=== PATIENT | male | born 1940 | race Caucasian/White ===

== ENCOUNTER → 2016-05-05 19:24 | Outpatient (CLI) | payer MEDICARE, OTHER ==
[2016-01-14 07:53] VITALS: BMI 28.1
[~2016-05-05 19:24] MED LIST: AMBIEN CR12.5 MG/BO PO; BACTRIM DS TABL1 TAB PO; DEMEROL50 MG PO; DILAUDID2 MG PO; ELIQUIS2.5 MG PO; FLOMAX0.4 MG PO; GABAPENTIN100 MG PO; GLUCOPHAGE1000 MG PO; HYDROCHLOROTH12.5 M1 PO; INVOKANA300 MG PO; JANUVIA100 MG PO; NADOLOL PO; NORVASC10 MG PO; PERCOCET 10/3251 TA1 PO; VALIUM10 MG PO; [UNRECOGNIZED DRUG - OTHER] PO
== END | disposition home or self-care (01) ==
LOC: D.LABREF 19:24
DX: M17.9 Osteoarthritis of knee, unspecified (principal); Z11.8 Encounter for screening for other infectious and parasitic diseases

== ENCOUNTER 2016-05-12 08:30 | Inpatient (IN) | payer MEDICARE, OTHER ==
[~2016-05-12] VITALS: Ht 172.7 cm; Wt 86.4 kg
[2016-05-12 08:23] LABS: BASOPHILS 0.1 % (0.0-2.0); EOSINOPHILS 2.6 % (0-7); IMMATURE GRANULOCYTES 0.3 % (0-5); LYMPHOCYTES 21.4 % (15-50); MCH 30.9 pg (26.0-34.0); MCHC 33.3 g/dL (31.0-37.0); MCV 92.7 fL (80.0-100.0); MEAN PLATELET VOLUME 10.4 fL (7.4-10.4); MONOCYTES 10.9 % (2-11); NEUTROPHILS 64.7 % (40-80); PLATELET COUNT 158 10x3/uL (130-400); RBC 4.53 10x6/uL (4.20-6.10); RDW 13.1 % (11.5-14.5); WBC 7.2 10x3/uL (4.8-10.8)
[2016-05-12 08:26] LABS: APPEARANCE CLEAR (CLEAR); BILIRUBIN NEGATIVE (NEGATIVE); COLOR YELLOW (YELLOW); GLUCOSE NEGATIVE (NEGATIVE); KETONE NEGATIVE (NEGATIVE); LEUKOCYTE ESTERASE NEGATIVE (NEGATIVE); NITRITE NEGATIVE (NEGATIVE); PROTEIN NEGATIVE (NEGATIVE); SPECIFIC GRAVITY 1.015 (1.005-1.020); UROBILINOGEN NORMAL (NORMAL)
[~2016-05-12 08:30] MED LIST changes: -BACTRIM DS TABL1 TAB PO; -ELIQUIS2.5 MG PO; -PERCOCET 10/3251 TA1 PO
[2016-05-12 08:35] LABS: ANION GAP 13.2 mmol/L (8-16); CALCIUM 9.3 mg/dL (8.5-10.1); CARBON DIOXIDE 30.1 mmol/L (21.0-32.0); CREATININE - SERUM 1.2 mg/dL (0.6-1.3); POTASSIUM - SERUM 4.3 mmol/L (3.5-5.1)
[2016-05-12 08:39] LABS: APTT 27.5 SECONDS (22.8-39.4); INR 0.98 (0.85-1.17); PROTIME 12.8 SECONDS (11.6-15.0)
[2016-05-16] VITALS (11 sets, daily range): BP systolic 116–142; BP diastolic 46–84; Ht 172.7 cm; Wt 86.4 kg
--- NOTE | 2016-05-16 13:38 | NUR ---
PT PUT INTO PACU HOLDING MODE WHILE WAITING FOR MED SURG STAFF TO BE ASSIGNED TO PT.
--- NOTE | 2016-05-16 13:50 | NUR ---
RECEIVED TO ROOM 2212 VIA BED FROM PACU. A/O X3. AT BEDSIDE. DRESSING TO LEFT KNEE IS DRY AND INTACT. DENIES PAIN. PEDAL PULSES PALPABLE. DENEIS NEEDS.
--- NOTE | 2016-05-16 14:45 | NUR ---
VSS LUNCH TRAY SERVED IN ROOM. ATE ALL OF TRAY. NO C/O PAIN AT THIS TIME. INSTRUCTED IN USE OF IS WITH RETURN DEMONSTRATION. DENIES NEEDS.
--- NOTE | 2016-05-16 16:20 | NUR ---
RESTING QUIETLY IN BED. AT BEDSIDE. DENIES NEEDS. VSS.
--- NOTE | 2016-05-16 17:00 | NUR ---
FSBS 214. GIVEN HUMALOG SUB Q PER SS. SUPPER SERVED IN ROOM. ATE ALL OF MEAL. DENIES NEEDS.
--- NOTE | 2016-05-16 19:15 | NUR ---
RECIEVED SHIFT REPORT. PT IS LYING IN BED. ALERT AND ORIENTED AND ABLE TO VERBALIZE NEEDS. IV IS PATENT AND SALINE LOC AT THIS TIME. PT IS AMBUTLATORY WITH ASSISTANCE. PT REFUSES SCD'S. PT DENIES ANY PAIN AT THIS TIME. ISOLATION PRECAUTIONS IN PLACE. NO NEEDS ARE VERBALIZED AT THIS TIME. WILL CONTINUE TO MONITOR. SIDE RAILS ARE UP X 2. BED IS IN LOWEST POSITION. LIBBY MAT ON FOR SAFETY. CALL LIGHT IS WITHIN REACH.
--- NOTE | 2016-05-16 19:30 | NUR ---
RECIEVED SHIFT REPORT. PT IS LYING IN BED. ALERT AND ORIENTED AND ABLE TO VERBALIZE NEEDS. IV IS PATENT AND FLUIDS ARE RUNNING PER ORDER. O2 @ 2 PER NASAL CANNULA. SCD'S ON. CPM ON. DRESSING TO LEFT KNEE C/D/I. PT STATES PAIN IS 6/10. NO NEEDS ARE VERBALIZED AT THIS TIME. WILL CONTINUE TO MONITOR. SIDE RAILS ARE UP X 2. BED IS IN LOWEST POSITION. BED ALARM IS ON FOR SAFETY. CALL LIGHT IS WITHIN REACH.
--- NOTE | 2016-05-16 19:34 | NUR ---
CPM ON AT 1830. AT BEDSIDE. NO CHANGES NOTED. DENIES NEEDS.
--- NOTE | 2016-05-16 20:46 | NUR ---
SHIFT ASSESSMENT COMPLETED. NIGHT MEDS GIVEN WITH NO PROBLEMS. PT RECIEVED 4 UNITS INSULIN PER SLIDING SCALE FOR SNVX=[id number]. PT C/O PAIN 10/08. ADMINISTERED PRESCRIBED PRN DEMEROL PER ORDER. DENIES FURTHER NEEDS. WILL MONITOR. SIDE RAILS X 2. BED LOW. BED ALARM ON. CALL LIGHT IN REACH.
[2016-05-17 00:21] VITALS: BP 135/69
[2016-05-17 05:00] VITALS: BP 142/71
[2016-05-17 06:46] LABS: BASOPHILS 0.1 % (0.0-2.0); HEMATOCRIT 36.6 % (42.0-54.0); HEMOGLOBIN 12.3 g/dL (13.5-17.5); IMMATURE GRANULOCYTES 0.3 % (0-5); LYMPHOCYTES 12.9 % (15-50); MCH 30.4 pg (26.0-34.0); MCHC 33.6 g/dL (31.0-37.0); MCV 90.6 fL (80.0-100.0); MONOCYTES 11.1 % (2-11); NEUTROPHILS 74.6 % (40-80); PLATELET COUNT 185 10x3/uL (130-400); RBC 4.04 10x6/uL (4.20-6.10); RDW 13.1 % (11.5-14.5); WBC 13.6 10x3/uL (4.8-10.8)
[2016-05-17 07:10] LABS: ANION GAP 12.7 mmol/L (8-16); CALCIUM 8.1 mg/dL (8.5-10.1); CREATININE - SERUM 1.2 mg/dL (0.6-1.3); POTASSIUM - SERUM 3.7 mmol/L (3.5-5.1)
[2016-05-17 07:53] VITALS: BP 105/83
--- NOTE | 2016-05-17 08:03 | NUR ---
AWAKE AND ALERT. ORIENTED X3. CPM OFF AT THIS TIME. LUNGS ARE CLEAR BILATERALLY, NO COUGH NOTED. REPORTS USED IS INSTRUCTED. SKIN IS INTACT IWTHOUT REDNESS EXCEPT INCISION TO LEFT KNEE WHICH HAS A DRY INTACT DRESSING IN PLACE. SCD'S ON. IV TO LEFT FOREARM IS PATENT WITHOUT REDNESS AT INSERTION SITE. AT BEDSIDE. DENIES NEEDS.
--- NOTE | 2016-05-17 09:30 | NUR ---
UP TO CHAIR AT BEDSIDE PER PT. REQUESTED AND GIVEN 50MG DEMEROL PO WITH 4MG ZOFRAN PO FOR PAIN LEVEL 9. WILL MONITOR.
--- NOTE | 2016-05-17 10:30 | NUR ---
REPORTS PAIN IMPROVED WITH DEMEROL. DENIES NEEDS. REMAINS UP IN CHAIR.
--- NOTE | 2016-05-17 10:42 | NUR ---
* Is the patient Alert and Oriented? Yes 0 * How many steps to enter\exit or inside your home? 1 0 * PCP Dr. Jesus Manuel Crocker 0 * Pharmacy [facility] 0 * Preadmission Environment Home with Family 0 * ADLs Independent 0 * Equipment Crutch Rolling Walker Shower Chair 0 * List name and contact numbers for known caregivers / representatives who currently or will assist patient after discharge: Spouse - Debo [phone] 0 * Additional services required to return to the preadmission environment? Yes 0 * Can the patient safely return to the preadmission environment? Yes 0 * Has this patient been hospitalized within the prior 30 days at any hospital? No 05/17/2016 10:42 DCP: Discharge Planning Patient Name: FELIX ANDERSON Admission Status: Elective Accout number: [id number] Admission Date: 05-16-2016 : 1942 Admission Diagnosis: Attending: NAVARRO Current LOS: 1 Anticipated DC Date: 05-18-2016 Planned Disposition: Outpatient PT\OT Primary Insurance: MEDICARE A & B Discharge Planning Comments: CM met with patient to assess dc plans/needs. Patient states he lives at home with his , Debo. He reports he was independent with all ADL's & IADL's prior to admission. He has crutches, walker, & shower chair. At nc, he will return home with his . He has chosen to go to [facility] outpatient [facility] therapy - Appt. scheduled 05/20 @ 1400. OP PT Rx faxed. CPM has been ordered by MD office through [facility] prior to admission & will be delivered to the home after discharge. CM will follow.
[2016-05-17 12:18] VITALS: BP 129/76
[2016-05-17 16:18] VITALS: BP 122/68
--- NOTE | 2016-05-17 19:40 | NUR ---
RECIEVED SHIFT REPORT. PT IS LYING IN BED. ALERT AND ORIENTED AND ABLE TO VERBALIZE NEEDS. IV IS PATENT AND SALINE LOC AT THIS TIME. SCD'S ON. CPM ON. DRESSING TO LEFT KNEE C/D/I. PT STATES PAIN IS 9/10. NO NEEDS ARE VERBALIZED AT THIS TIME. WILL CONTINUE TO MONITOR. SIDE RAILS ARE UP X 2. BED IS IN LOWEST POSITION. BED ALARM ON FOR SAFETY. CALL LIGHT IS WITHIN REACH.
--- NOTE | 2016-05-17 21:06 | NUR ---
SHIFT ASSESSMENT COMPLETED. NIGHT MEDS GIVEN WITH NO PROBLEMS. PT RECIEVED 8 UNITS INSULIN PER SLIDING SCALE FOR YRYN=[id number]. PT C/O PAIN 01/08. ADMINISTERED PRESCRIBED PRN DEMEROL PER ORDER. DENIES FURTHER NEEDS. WILL MONITOR. SIDE RAILS X 2. BED LOW. BED ALARM ON. CALL LIGHT IN REACH.
[2016-05-17 22:00] VITALS: BP 130/69
[2016-05-18 06:15] LABS: BASOPHILS 0.1 % (0.0-2.0); EOSINOPHILS 1.7 % (0-7); HEMATOCRIT 31.8 % (42.0-54.0); IMMATURE GRANULOCYTES 0.3 % (0-5); MCH 30.9 pg (26.0-34.0); MCHC 34.6 g/dL (31.0-37.0); MCV 89.3 fL (80.0-100.0); MEAN PLATELET VOLUME 10.3 fL (7.4-10.4); MONOCYTES 10.8 % (2-11); NEUTROPHILS 76.1 % (40-80); RBC 3.56 10x6/uL (4.20-6.10); RDW 12.9 % (11.5-14.5); WBC 11.8 10x3/uL (4.8-10.8)
[2016-05-18 06:18] LABS: PLATELET COUNT 134 10x3/uL (130-400)
[2016-05-18 06:49] LABS: ANION GAP 11.5 mmol/L (8-16); CALCIUM 7.2 mg/dL (8.5-10.1); CREATININE - SERUM 1.1 mg/dL (0.6-1.3); POTASSIUM - SERUM 3.5 mmol/L (3.5-5.1)
[2016-05-18 08:13] VITALS: BP 134/73
--- NOTE | 2016-05-18 08:28 | NUR ---
PT SEEN AND ASSESSED. NO COMPLAINTS OFPAIN AT PRESENT. LEFT LEG IN CPM MACHINE AND TOES ARE PINK AND WARM. ERIC WRAP NOTED FROM MID THIGH TO CALF. BED ALARM FOR SAFETY. CALL LIGHT IN REACH
[2016-05-18 11:56] VITALS: BP 151/80
[2016-05-18 15:52] VITALS: BP 141/72
--- NOTE | 2016-05-18 20:00 | NUR ---
ASSESSMENT PER FLOWSHEET. LEFT KNEE INCISION C/D/I. LEG IN CPM MACHINE. IV PATENT LEFT FOREARM SALINE LOCK. SITE CLEAR. AT BEDSIDE.SCD'S ON. BED ALARM BED ON SR UP X2 CALL LIGHT WITHIN REACH.
--- NOTE | 2016-05-18 21:36 | NUR ---
MEDS GIVEN PER JUN. C/O LEFT KNEE PAIN RATES PAIN LEVEL #6 DEMEROL 50MG PO GIVEN FOR PAIN CONTROL.
--- NOTE | 2016-05-18 22:00 | NUR ---
VOIDS IN URINAL.
[2016-05-18 22:07] VITALS: BP 136/78
--- NOTE | 2016-05-19 | NUR ---
VOIDS IN URINAL. CMP OFF AT PRESENT WAS REMOVED AT 2100.SCD'S ON.
--- NOTE | 2016-05-19 00:30 | NUR ---
C/O INCISIONAL PAIN RATES PAIN LEVEL #6. DEMEROL 50MG PO GIVEN FOR PAIN CONTROL.
[2016-05-19 01:00] VITALS: BP 139/75
--- NOTE | 2016-05-19 01:48 | NUR ---
EYES CLOSED RESPIRATIONS WITH EASE AND UNLABORED.
--- NOTE | 2016-05-19 03:35 | NUR ---
TRANSFERED TO [facility] WITH USE OF WALKER AND 2 PEOPLE. CALL LIGHT WITHIN REACH.
--- NOTE | 2016-05-19 03:45 | NUR ---
FLATUS EXPELLED. TRANSFERED BACK TO BED WITH USE OF WALKER. BED ALARM ON SR UP X2 CALL LIGHT WITHIN REACH.
--- NOTE | 2016-05-19 03:55 | NUR ---
C/O PAIN INCISIONAL SITE. DEMEROL 50MG PO GIVEN FOR PAIN CONTROL.
[2016-05-19 05:45] LABS: BASOPHILS 0.1 % (0.0-2.0); EOSINOPHILS 1.7 % (0-7); HEMATOCRIT 30.8 % (42.0-54.0); HEMOGLOBIN 10.5 g/dL (13.5-17.5); IMMATURE GRANULOCYTES 0.3 % (0-5); LYMPHOCYTES 12.9 % (15-50); MCH 30.4 pg (26.0-34.0); MCHC 34.1 g/dL (31.0-37.0); MCV 89.3 fL (80.0-100.0); MEAN PLATELET VOLUME 10.8 fL (7.4-10.4); MONOCYTES 12.2 % (2-11); NEUTROPHILS 72.8 % (40-80); PLATELET COUNT 148 10x3/uL (130-400); RBC 3.45 10x6/uL (4.20-6.10); RDW 12.9 % (11.5-14.5)
--- NOTE | 2016-05-19 05:45 | NUR ---
CPM PLACED TO LEFT LEG. SR UP X2 CALL LIGHT WITHIN REACH.
[2016-05-19 06:09] LABS: ANION GAP 13.5 mmol/L (8-16); CALCIUM 7.3 mg/dL (8.5-10.1); CREATININE - SERUM 1.2 mg/dL (0.6-1.3); POTASSIUM - SERUM 3.5 mmol/L (3.5-5.1)
--- NOTE | 2016-05-19 06:13 | NUR ---
UHQO=091 HUMALOG INSULIN 12 UNITS GIVEN SUBC PER S/S TO LEFT ARM
--- NOTE | 2016-05-19 07:30 | NUR ---
REPORT RECEIVED FROM CASINO CASHIER MANAGER NURSE. CALL LIGHT IN REACH.
[2016-05-19 08:19] VITALS: BP 128/76
--- NOTE | 2016-05-19 09:03 | NUR ---
ASSESSMENT COMPLETED. AM MEDS ADMINISTERED. PAIN MEDS PO. CALL LIGHT IN [facility].
[2016-05-19 10:00] LABS: HEMOGLOBIN A1C 8.6 % (4.8-6.0)
--- NOTE | 2016-05-19 11:25 | NUR ---
PATIENT SITTING IN FLOOR AT THIS TIME. STATED HE SLID OFF OF HIS CHAIR BECAUSE HE SCOOTED UP TO MUCH. NO INJURY AT THIS TIME. ASSISTED BACK UP IN CHAIR X 2 ASSIST. DRESSING CLEAN AND DRY TO RIGHT KNEE. PATIENT STATED NO PAIN. VS TO BE TAKEN BY OCCUPATIONAL MEDICINE OFFICER. CALL LIGHT WITHIN REACH.
[2016-05-19 11:53] VITALS: BP 160/82
--- NOTE | 2016-05-19 13:44 | NUR ---
DEMEROL 50 MG PO PER C/O REQUEST OF PAIN OF 10 TO LEFT KNEE. CALL LIGHT IN REACH.
--- NOTE | 2016-05-19 15:20 | NUR ---
DENIES NEEDS AT THIS TIME. CALL LIGHT IN REACH.
--- NOTE | 2016-05-19 15:59 | NUR ---
STATES THAT PATIENT IS REQUESTING [employer] ONLY FOR DINNER. WILL PUT ORDER IN COMPUTER.
[2016-05-19 17:34] VITALS: BP 136/71
--- NOTE | 2016-05-19 17:40 | NUR ---
FSBS 192. REFUSES INSULIN AT THIS TIME. CALL LIGHT IN REACH.
--- NOTE | 2016-05-19 18:23 | NUR ---
METFORMIN AND DEMEROL PO. FRESH ICP PACK APPLIED TO LEFT KNEE. CPM PLACED ON PATIENT. SCDs TO BLE. BED ALARM ON. NO OTHER CHANGES IN INITIAL ASSESSMENT. CALL LIGHT IN REACH. WILL CONTINUE WITH PLAN OF CARE.
--- NOTE | 2016-05-19 20:00 | NUR ---
ASSESSMENT PER FLOWSHEET. LEFT LEG IN CPM MACHINE ACEWRAP C/D/I. IV PATENT LEFT AC SALINE LOCKED. SITE CLEAR. SR UP X2 CALL LIGHT WITHIN REACH BED ALARM BED ON.SCD'S ON.
[2016-05-19 21:00] VITALS: BP 128/70
--- NOTE | 2016-05-19 21:30 | NUR ---
CPM REMOVED REPOSITIONED IN BED SR UP X2 CALL LIGHT WITHIN REACH MEDS GIVEN PER MAR. GURL=[id number] HUMALOG INSULIN 16 UNITS GIVEN SUBC PER S/S. TO LEFT ARM.
--- NOTE | 2016-05-20 | NUR ---
EYES CLOSED RESPIRATIONS WITH EASE AND UNLABORED.
[2016-05-20 01:00] VITALS: BP 130/68
--- NOTE | 2016-05-20 02:00 | NUR ---
RESTING QUIETLY BODY IN GOOD ALIGNMENT.
--- NOTE | 2016-05-20 04:36 | NUR ---
EYES CLOSED RESPIRATIONS WITH EASE AND UNLABORED.
[2016-05-20 05:00] VITALS: BP 133/70
[2016-05-20 05:41] LABS: BASOPHILS 0.1 % (0.0-2.0); EOSINOPHILS 2.7 % (0-7); HEMATOCRIT 28.2 % (42.0-54.0); HEMOGLOBIN 9.5 g/dL (13.5-17.5); IMMATURE GRANULOCYTES 0.4 % (0-5); LYMPHOCYTES 14.9 % (15-50); MCH 30.4 pg (26.0-34.0); MCHC 33.7 g/dL (31.0-37.0); MCV 90.1 fL (80.0-100.0); MEAN PLATELET VOLUME 10.3 fL (7.4-10.4); MONOCYTES 12.3 % (2-11); NEUTROPHILS 69.6 % (40-80); PLATELET COUNT 165 10x3/uL (130-400); RBC 3.13 10x6/uL (4.20-6.10)
[2016-05-20 05:55] LABS: WBC 7.3 10x3/uL (4.8-10.8)
[2016-05-20 06:03] LABS: CALC OSMOLALITY 272 mosm/kg (275-300); CARBON DIOXIDE 30.1 mmol/L (21.0-32.0); CHLORIDE - SERUM 95 mmol/L (98-107); GLUCOSE 193 mg/dL (74-106); POTASSIUM - SERUM 3.1 mmol/L (3.5-5.1); SODIUM 134 mmol/L (136-145); UREA NITROGEN 12 mg/dL (7-18); eGFR NON AFRICAN AMERICAN 78 mL/min (90-120)
--- NOTE | 2016-05-20 07:00 | NUR ---
REPORT RECEIVED FROM PC MAINTENANCE TECHNICIAN NURSE. CALL LIGHT IN REACH.
--- NOTE | 2016-05-20 08:12 | NUR ---
ASSESSMENT COMPLETED. DEMEROL AND AM MEDS ADMINISTERED. SCDs TO BLE. BED ALARM ON. WILL CONTINUE WITH PLAN OF CARE.
[2016-05-20 08:32] VITALS: BP 143/77
[2016-05-20] MEDS ORDERED: ELIQUIS2.5 MG PO (09:31)
[2016-05-20] MEDS ORDERED: PERCOCET 10/3251 TA1 PO (09:32)
--- NOTE | 2016-05-20 10:42 | NUR ---
05/20/2016 10:37 DCP: Discharge Planning Patient slow to progress with physical therapy - will benefit from outpatient therapy prior to outpatient. Patient & spouse agreeable. THEODORE signed with [facility]. Referral faxed and called to [facility]. Cancelled appt. with [facility]. DC this afternoon.
--- NOTE | 2016-05-20 10:54 | NUR ---
DR. CANDELARIO AND JANE IN ROOM TO LOOK AT PATIENT'S LEG.
[2016-05-20 11:50] VITALS: BP 140/75
--- NOTE | 2016-05-20 11:51 | NUR ---
WATCHING TV QUIETLY AT PRESENT RESP EVEN AND UNLABORED N/C VOICED.
--- NOTE | 2016-05-20 13:05 | NUR ---
PATIENT GOT OUT OF CHAIR ON HIS OWN AND WALKED TO THE BR AND BACK TO HIS BED. EXPLAINED TO PATIENT HOW DANGEROUS IT IS. BED ALARM PLACED ON PATIENT.
--- NOTE | 2016-05-20 15:50 | NUR ---
I HAVE SPOKEN WITH ULTRASOUND TWICE ABOUT VENOUS DOPPLER. FABRIZIO STATES IT WILL GET DONE AFTER OUTPATIENT ORDERS ARE COMPLETED.
[2016-05-20 16:17] VITALS: BP 135/79
--- NOTE | 2016-05-20 16:25 | NUR ---
US HERE TO DO VENOUS DOPPLER.
--- NOTE | 2016-05-20 17:43 | NUR ---
DRSG TO KNEE CHANGED. DEMEROL AND GLUCOPHAGE PO. FSBS 207. SO 12 UNITS HUMALOG SUBQ TO RIGHT ARM.
[2016-05-20] MEDS ORDERED: BACTRIM DS TABL1 TAB PO (18:30)
--- NOTE | 2016-05-20 19:27 | NUR ---
DC INSTRUCTIONS EXPLAINED TO PATIENT AND . BOTH VERBALIZED UNDERSTAnDING. RXs DILAUDID AND ELIQUIS GIVEN TO PATIENT.
--- NOTE | 2016-05-30 18:23 | OP ---
PATIENT NAME: FELIX ANDERSON MEDICAL RECORD: [id number] :42 LOCATION:D.[facility] ADMISSION DATE:05/16/16 SURGEON: JUAN GUILLAUME MD DATE OF OPERATION: 05/16/2016 PREOPERATIVE DIAGNOSIS: Severe degenerative arthritis of the left knee. POSTOPERATIVE DIAGNOSIS: Severe degenerative arthritis of the left knee. PROCEDURE: Left total knee arthroplasty. SURGEON: Juan Guillaume MD ANESTHESIA: General. INTRAOPERATIVE COMPLICATIONS: None. SUMMARY OF PATHOLOGIC FINDINGS: The patient has extensive osteoarthritis of the medial and patellofemoral joint. IMPLANTS USED: GPal triathlon total knee arthroplasty system, size 6 distal femur, 11 polyethylene insert, size 6 tibial baseplate with a 33-mm polyethylene resurfacing component. ESTIMATED BLOOD LOSS: 50 cc. OPERATIVE SUMMARY IN DETAIL: After obtaining the appropriate preoperative orthopedic surgery consent, as well as anesthetic consultation, evaluation and clearance, the patient was brought to the operating room and placed on the operating table in supine position. After adequate general laryngeal mask airway was administered, tourniquet was placed about the proximal aspect of left lower extremity. Left lower extremity was then prepped and draped in routine sterile fashion. Leg was elevated, exsanguinated and tourniquet was inflated to 350 mmHg. Routine midline incision was taken down for paramedian arthrotomy was everted, distal femur was exposed. Distal intramedullary guide hole was created followed by cutting the distal femur. Guide hole was also created in the proximal tibia for proximal tibial cut. Having completed this, measurements were taken. Distal femoral chamfer cuts were taken. Trials were put into place corresponding to the above final trials. Final distal femoral and proximal tibial preparations were followed by excision of the arthritic articular surface of the patella. Final patellar preparations for resurfacing were made. The knee cavity was irrigated in pulsatile lavage fashion. Bony ends were dried. Components were cemented into place. All excess cement was removed, the cement was allowed to harden. The knee was taken through a range of motion and found to be stable in all planes. Paramedian arthrotomy was closed with #2 Ethibond followed by #1 Vicryl, 2-0 Vicryl and skin alissa. Sterile dressings were applied. The patient was awakened, taken to recovery room in stable condition. All final needle and sponge counts were correct. TRANSINT:[id number] Voice Confirmation ID: [id number] DOCUMENT ID: [id number] OPERATIVE REPORT [id number] FELIX ANDERSON MD, JUAN VENTURA at 1823 CC: [id number] DICTATION DATE: 05/16/16 1302 COMBAT CONTROL MANAGER: 05/16/16 1408 DIS IN 05/20/16 [place] [id number] [place] [id number]
== END 2016-05-20 19:27 | disposition home health service (06) | DRG 470 ==
LOC: D.SDCHOLD 08:30 → D.MS 05-16 05:21 → D.SDCHOLD 05-16 08:30 → D.MS 05-16 13:07 → D.SDCHOLD 05-16 13:15 → D.MS 05-20 19:27
PROVIDERS: Family Medicine; ADMIT Orthopaedic Surgery
PROC: 0SRD0JZ Replacement of Left Knee Joint with Synthetic Substitute, Open Approach (ICD-10-PCS; principal; 2016-05-16 13:15)
DX: M17.12 Unilateral primary osteoarthritis, left knee (principal); E11.9 Type 2 diabetes mellitus without complications; I10 Essential (primary) hypertension

== ENCOUNTER → 2019-05-15 11:06 | Outpatient (CLI) | payer MEDICARE, OTHER ==
[2016-05-16 13:56] VITALS: BMI 28.9
[~2019-05-15 11:06] MED LIST changes: +BACTRIM DS TABL1 TAB PO; +ELIQUIS2.5 MG PO; +PERCOCET 10/3251 TA1 PO
== END | disposition home or self-care (01) ==
LOC: D.LAB 10:09
PROVIDERS: ATTEND Urology
DX: N40.0 Benign prostatic hyperplasia without lower urinary tract symptoms (principal)

== ENCOUNTER 2019-05-28 06:05 | Day surgery (SDC) | payer MEDICARE, OTHER ==
[2019-05-27 09:09] LABS: HEMATOCRIT 39.8 % (42.0-54.0); HEMOGLOBIN 12.9 g/dL (13.5-17.5); MCH 28.4 pg (26.0-34.0); MCHC 32.4 g/dL (31.0-37.0); MCV 87.5 fL (80.0-100.0); RBC 4.55 10x6/uL (4.20-6.10); RDW 16.3 % (11.5-14.5); WBC 5.8 10x3/uL (4.8-10.8)
[2019-05-27 09:17] LABS: CALCIUM 8.7 mg/dL (8.5-10.1); CARBON DIOXIDE 30.2 mmol/L (21.0-32.0); CREATININE - SERUM 1.3 mg/dL (0.6-1.3); POTASSIUM - SERUM 4.2 mmol/L (3.5-5.1)
[~2019-05-28] VITALS: Ht 172.7 cm; Wt 88.5 kg
[2019-05-28] MEDS ORDERED: BASAGLAR K100 UNIT/1 SC (06:28)
[2019-05-28 06:35] VITALS: BP 136/77; Ht 172.7 cm; Wt 88.5 kg
--- NOTE | 2019-05-28 10:29 | NUR ---
0950 IV DC'ED WITH CATH INTACT TO RIGHT HAND. RIGHT HAND ELEVATED ABOVE HEART LEVEL WITH STEADY PRESSURE APPLIED FOR 2 MINUTES. NO BLEEDING NOTED @ SITE. COTTON BALL TO SITE. HELD IN PLACE WITH BANDAID. PT DRESSING WITH 'S ASSISTANCE. Binh VIRGEN R.N. 1012 DRESSED. AWAKE & ALERT. GIVEN DISCHARGE INFORMATION INCLUDING: MED REC, RTC APPT., [facility] D/C INSTRUCTIONS & POST CYSTOSCOPY & POST RECTAL BIOPSY D/C INSTRUCTIONS. PT & VOICED UNDERSTANDING. TO PRIVATE CAR PER WHEELCAHIR BY STAFF. HOME WITH , ALLEN ANDERSON. Binh VIRGEN R.N.
--- NOTE | 2019-05-28 12:18 | OP ---
PATIENT NAME: FELIX ANDERSON MEDICAL RECORD: [id number] :42 LOCATION:D.[facility] ADMISSION DATE: SURGEON: JACE MONTES MD DATE OF OPERATION: 05/28/2019 SURGEON: Jace Montes MD ANESTHESIA: TIVA by Jimmy Braswell CRNA. DIAGNOSES: Bladder outlet obstruction, bladder mass, elevated PSA 4.54. PROCEDURES: 1. Cystoscopy, bladder tumor biopsy. 2. Transrectal ultrasound and prostate biopsy. FINDINGS: On cystoscopy, obstructive lateral lobes of the vascular prostatic urethra. There is a small nodule in the bladder, close to the left ureteral orifice. This was removed with the biopsy forceps. Transrectal ultrasound showed a 45.5 gram prostate with a hypoechoic area at the right base. There is no nodule palpable on digital rectal examination. SPECIMENS: 1. Bladder mass. 2. Prostate biopsy cores. BLOOD LOSS: Minimal. CLINICAL HISTORY: This is a 78-year-old male, who saw an advertisement on television regarding UroLift and he referred himself to get this procedure for BPH. He has had trouble voiding for the past 8 years. He is currently on Flomax and it is affecting him in terms of symptoms. He did not have a PSA test done in many years. I did repeat PSA on him and it was 4.54. His IPSS score is 20. His quality of life score is 5. He comes now to have a prostate biopsy and cystoscopy to evaluate the prostatic urethra. HE IS ALLERGIC TO CODEINE, HYDROCODONE, MORPHINE, Celebrex. He was given Levaquin IV court operations clerk to the OR. DESCRIPTION OF PROCEDURE: The patient was given IV sedation. He was placed in the lithotomy position and prepped and draped. A 17-Macanese cystoscope with 30-degree lens was used for visualization. The prostatic urethra is long and obstructive. It is quite vascular. The bladder neck is a bit elevated. Going into the bladder immediately in front of the left ureteral orifice with a small nodule or bump. It is not papillary in any way. I switched to the 21-Macanese cystoscope and using cold cup biopsy forceps to remove this nodule or bump entirely. We then introduced the Bugbee electrode and the base of the tumor mass where it had been excised from the bladder was cauterized to stop any venous bleeding. No other tumor masses were seen in the bladder. The bladder was then emptied through the cystoscope sheath and then the scope was removed. The transrectal ultrasound probe was then introduced. Prostate size measurements were obtained at 45.5 grams. There is a hypoechoic area in the right base. Sextant biopsies were obtained with at least 3 cores from each sextant. I made sure to include sampling from the hypoechoic area in the right base. Once all the specimens were obtained, the procedure was terminated. I will see the patient in followup next week to review the pathology results with him. OPERATIVE REPORT [id number] FELIX ANDERSON MOHIT TRANSINT:[id number] Voice Confirmation ID: [id number] DOCUMENT ID: [id number] JACE MONTES MD at 1218 CC: [id number] DICTATION DATE: 05/28/19841 INFECTIOUS DISEASE TECHNICIAN: 05/28/19 1005 [facility] 05/28/19 [place] [id number] [place] [address]
== END 2019-05-28 10:12 | disposition home or self-care (01) ==
LOC: D.OPS 06:05 → D.PAN 08:00 → D.OPS 10:12 → D.PAN 12:00 → D.OPS 12:00
PROVIDERS: Anesthesiology; ATTEND Urology
DX: N32.0 Bladder-neck obstruction (principal); N32.9 Bladder disorder, unspecified; R97.20 Elevated prostate specific antigen [PSA]; N40.1 Benign prostatic hyperplasia with lower urinary tract symptoms; E11.9 Type 2 diabetes mellitus without complications; Z79.84 Long term (current) use of oral hypoglycemic drugs

== ENCOUNTER → 2019-10-07 12:02 | Outpatient (CLI) | payer MEDICARE, OTHER ==
[2019-05-28 06:35] VITALS: BMI 29.7
[~2019-10-07 12:02] MED LIST changes: +BASAGLAR K100 UNIT/1 SC; +LOZOL1.25 MG PO; +NEXIUM20 MG PO; +PROBENECID500 MG; +iron PO
== END | disposition home or self-care (01) ==
LOC: D.LABREF 12:02
PROVIDERS: ATTEND Neurological Surgery
DX: Z11.59 Encounter for screening for other viral diseases (principal)

== ENCOUNTER 2019-10-08 06:30 | Day surgery (SDC) | payer MEDICARE, OTHER ==
[2019-10-07 12:40] LABS: HEMATOCRIT 42.9 % (42.0-54.0); HEMOGLOBIN 13.9 g/dL (13.5-17.5); MCH 30.5 pg (26.0-34.0); MCHC 32.4 g/dL (31.0-37.0); MCV 94.1 fL (80.0-100.0); MEAN PLATELET VOLUME 9.8 fL (7.4-10.4); RBC 4.56 10x6/uL (4.20-6.10); RDW 13.5 % (11.5-14.5); WBC 7.4 10x3/uL (4.8-10.8)
[2019-10-07 12:57] LABS: CALCIUM 8.9 mg/dL (8.5-10.1); CARBON DIOXIDE 30.3 mmol/L (21.0-32.0); CREATININE - SERUM 1.5 mg/dL (0.6-1.3); POTASSIUM - SERUM 4.3 mmol/L (3.5-5.1)
[~2019-10-08] VITALS: Ht 172.7 cm; Wt 95.3 kg
[2019-10-08 07:05] VITALS: BP 135/75; Ht 172.7 cm; Wt 95.3 kg
--- NOTE | 2019-10-08 10:02 | NUR ---
0940 PLACED ON BEDPAN 0950 HAD BM. SPRITE SERVED
--- NOTE | 2019-10-09 06:53 | OP ---
PATIENT NAME: FELIX ANDERSON MEDICAL RECORD: [id number] :42 LOCATION:D.OPS ADMISSION DATE: SURGEON: MAXIMINO MONTES MD DATE OF OPERATION: 10/08/2019 SURGEON: Maximino Montes MD ANESTHESIA: TIVA by Sheree Colbert CRNA. DIAGNOSES: Obstructive benign prostatic hyperplasia. PSA is 4.54. Transrectal ultrasound show 45.5 gram prostate. PROCEDURE: UroLift times 7 units fired, 6 held. FINDINGS: Bilateral lateral lobe obstruction with a long prostatic urethra. ESTIMATED BLOOD LOSS: Minimal. CLINICAL HISTORY: This is a 78-year-old male with obstructive BPH symptoms. He was found to have an elevated PSA of 4.54 and he had a transrectal ultrasound and prostate biopsy back in June of 2019. Pathology on the biopsy was benign. He comes now to have the UroLift procedure done. He was given ampicillin and sulbactam 3 grams IV demolition specialist to the OR. DESCRIPTION OF PROCEDURE: The patient was given IV sedation. He was then placed into lithotomy position and prepped and draped. The UroLift scope was introduced. Cystoscopy was performed using the UroLift scope. Findings are as outlined above. No bladder tumors are seen. At the anterolateral sulcus, 1.5 cm distal to the bladder neck, we placed 1 UroLift unit on each side. We then went to the level of the verumontanum and attempted to place 1 unit on each side of the anterolateral sulcus. Here on the left side, 1 unit fired, but the needle did not ever retract and it had to be withdrawn through the sheath. This caused some bleeding from the prostate. We fired another unit in this area and this other unit work properly. Looking in with the obturator, there was still obstruction in the mid prostatic urethra. In the mid prostatic urethra, at the mid height level in the anterior and posterior direction, 1 unit was placed on each side. This gave a total of 6 units that have been implanted. He now had a nice wide open channel. Because of the bleeding from the prostate, the bladder was irrigated through the sheath with an Ellik evacuator. No large clots were seen. I decided to be safe and place a Jay catheter to allow the bleeding to resolve. The patient will go home with a Jay catheter and I will see him back in 2-3 days to remove it for a voiding trial. TRANSINT:[id number] Voice Confirmation ID: [id number] DOCUMENT ID: [id number] MAXIMINO MONTES MD at 0653 CC: [id number] DICTATION DATE: 10/08/19 0938 MEDICARE CONTACT SPECIALIST: 10/08/19 1554 [facility] 10/08/19 [place] [id number]
== END 2019-10-08 11:00 | disposition home or self-care (01) ==
LOC: D.OPS 06:30 → D.PAN 08:00 → D.OPS 08:00 → D.PAN 08:15 → D.OPS 08:15
PROVIDERS: Anesthesiology; ATTEND Urology
DX: N40.1 Benign prostatic hyperplasia with lower urinary tract symptoms (principal); N13.8 Other obstructive and reflux uropathy; E11.9 Type 2 diabetes mellitus without complications; Z79.84 Long term (current) use of oral hypoglycemic drugs